=== PATIENT | female | born 1990 | race Caucasian/White ===

== ENCOUNTER → 2021-06-23 | Outpatient (REF) ==
--- NOTE | 2021-06-23 13:18 | REP ---
INDICATION: PAIN COMPARISON: None. TECHNIQUE: AP, lateral, coned-down views of the lumbar spine. FINDINGS: Three views of the lumbosacral spine demonstrate satisfactory alignment and lordosis without acute fracture / compression injury or subluxation. Disc spaces are maintained and there is no significant degenerative spondylosis noted by radiographic evaluation. IMPRESSION: 1. No acute fracture / compression injury or subluxation. 2. No significant degenerative changes appreciated. <Electronically signed by Shane Conte > 06/23/21 [id number]
== END ==
LOC: M PLAIMG 12:28
PROVIDERS: ATTEND Internal Medicine
DX: Z00.00 Encounter for general adult medical examination without abnormal findings (principal)